=== PATIENT | female | born 1960 | race Caucasian/White ===

== ENCOUNTER 2016-08-14 20:01 | Emergency (ER) | payer OTHER, MEDICARE ==
[~2016-08-14] VITALS: Ht 162.6 cm; Wt 50.0 kg
[~2016-08-14 20:01] MED LIST: ALBU8.5H2 INHALATION; BUPR150T8 PO; CHOL5000 PO; COLL PO; FEXO180T85 PO; FLUT100D2 IH; FLUT9.9S NS; LISI-567 PO; MONT10TA20 PO; MORP30TA PO; OXYC-474 PO
[2016-08-14 20:09] VITALS: BP 123/83; PULSE 86; RESP 18; O2SAT 98
[2016-08-14 21:34] LABS: BASOPHILS % (AUTO) 0.2 % (0-3); EOSINOPHILS % (AUTO) 0 % (0-5); MONOCYTES % (AUTO) 5.1 % (4-12); Mean Corpuscular Volume 93.2 fL (81-100); NEUTROPHILS % (AUTO) 82.3 % (40-74); Platelet Count 226 bil/L (150-400)
[2016-08-14 22:01] LABS: Magnesium 1.9 mg/dL (1.6-2.6)
[2016-08-14] MEDS ORDERED: 0.9% Sodium Chloride 1,000 ML IV ONE (23:00)
--- NOTE | 2016-08-14 23:10 | ED.REPORT ---
HPI-NVD Date of Service Aug 14, 2016 ED Provider: Axel Tai DO A 55 year old female with a history of COPD and hypertension presents to the ED with diffuse abdominal pain onset two days ago, after eating a [employer] hamburger. Associated symptoms include nausea, vomiting, watery diarrhea, fever (38.1), and generalized myalgias. The patient has not been able to drink adequate fluids. She denies hematemesis, hematochezia, or other symptoms. The patient is on 2L O2 at home. Nursing Notes Stated Complaint: VOMITING, DIARRHEA, BODY ACHES Chief Complaint: Female Abdominal Pain Nursing Notes Reviewed: Yes Allergies: Uncoded Allergies: NKDA (Allergy, Unknown, 10/13/04) Scheduled Albuterol HFA (Proair HFA) 8.5 Gm Hfa.aer.ad 2 PUFFS INHALATION TID Bupropion ER (Wellbutrin SR) 150 Mg Tablet.er 150 MG PO BID Fexofenadine (Glendy Allergy) 180 Mg Tablet 180 MG PO DAILY Fluticasone Propionate (Flonase Allergy Relief) 50 Mcg/Actuation Empire.susp 9.9 ML NS BID Fluticasone Propionate (Flovent Diskus) 100 Mcg Disk.w.dev 1 PUFF IH BID Lisinopril (Lisinopril) 20 Mg Tablet 20 MG PO DAILY Montelukast (Singulair) 10 Mg Tablet 10 MG PO HS Morphine Sulfate (Morphine Sulfate) 30 Mg Tablet 30 MG PO TID Peg/Electrolytes (Golytely Solution) 4,000 Ml Soln 4,000 ML PO ONCE 1 glassful every 10-15 min until clear liquid BMs Scheduled PRN Oxycodone (Roxicodone) 5 Mg Tablet 5 MG PO Q4H PRN PRN For Pain Miscellaneous Medications Cholecalciferol (Vitamin D3) (Vitamin D3) 5,000 Unit Capsule 5,000 UNIT PO General Time Seen by MD: 22:56 Chief Complaint Other (Diffuse Abdominal Pain) Hx Obtained From: Patient Arrived By: Walk-in Onset Occurred: 2 days ago Context of Onset: Possible food poisoning Symptom Duration: Since onset Diarrhea: Diarrhea is watery Location: : Diffuse (Abdominal) Quality: Painful Severity: Current: Moderate Severity: Maximum: Moderate Associated with: Reports: Fever, Denies: Blood in stool, Hematemesis Pertinent Negative: Relieved by nothing Recent Healthcare: No recent doctor visit Past Medical History Past Medical History Reports: COPD, Hypertension Past Surgical History Pain blocks every 3-4 weeks for diffuse abdominal pains Smoking History Unknown if Ever Smoker Social History Other Social History: Good social support Ambulatory Status Independent Review of Systems Review of Systems Note: + Decreased fluid intake Constitutional: Reports: Fever (38.1 in ED) GI: Reports: Abdominal pain (Diffuse), Diarrhea, Nausea, Vomiting, Denies: Hematemesis, Hematochezia Complete sys rev & neg: except as marked. Respiratory: Denies: Non-productive cough, Shortness of breath Musculoskeletal: Reports: Myalgia (Generalized) Physical Exam Initial Vital Signs Vital Signs (First) Date Time Temp Pulse Resp B/P Pulse Ox O2 Delivery O2 Flow Rate FiO2 08/14/16 20:09 38.1 86 18 123/83 98 Room Air Initial VS: Reviewed Head / Eyes: Atraumatic, Normocephalic ENT: Conjunctiva normal, No scleral icterus Neck: Supple, Full range of motion Respiratory: Breath sounds normal, Clear to auscultation, No respiratory distress Cardiovascular: Regular rate & rhythm, Heart sounds normal Skin: Warm, Dry, No cyanosis Neurologic: Alert, Oriented, Nonfocal Psychiatric: Mood/affect normal, Behavior normal, Normal thought content General/Constitutional: Awake, Alert Abdomen: Atraumatic, Soft Tenderness/Guarding/Rebound: Positive: Tender diffuse Interpretation & Diagnostics Lab Results Interpretation Result Diagram: 08/14/16212308/14/162123 Test 08/14/16 21:24 White Blood Count 9.0th/mm3 (3.8-10.1) Red Blood Count 4.53mil/mm3 (3.90-5.20) Hemoglobin 13.6g/dL (12.0-15.6) Hematocrit 42.2% (35.0-46.0) Mean Corpuscular Volume 93.2fL (81-100) Mean Corpuscular Hemoglobin 30.0pg (27.0-35.0) Mean Corpuscular Hemoglobin Concent 32.2% (32.0-37.0) Red Cell Distribution Width 14.7% (12.3-15.4) Platelet Count 226bil/L (150-400) Neutrophils (%) (Auto) 82.3% (40-74) Lymphocytes (%) (Auto) 12.0% (14-46) Monocytes (%) (Auto) 5.1% (4-12) Eosinophils (%) (Auto) 0% (0-5) Basophils (%) (Auto) 0.2% (0-3) Sodium Level 136mEq/L (134-144) Potassium Level 4.4mEq/L (3.5-5.2) Chloride Level 98mEq/L (97-108) Carbon Dioxide Level 23mmol/L (18-29) Blood Urea Nitrogen 18mg/dL (6-24) Creatinine 0.63mg/dL (0.57-1.00) Estimat Glomerular Filtration Rate 141mL/min (>59) Glucose Level 124mg/dL (60-99) Calcium Level 9.9mg/dL (8.5-10.1) Magnesium Level 1.9mg/dL (1.6-2.6) Total Bilirubin 0.5mg/dL (0.0-1.2) Aspartate Amino Transf (AST/SGOT) 18U/L (0-50) Alanine Aminotransferase (ALT/SGPT) 8U/L (0-32) Alkaline Phosphatase 52U/L (25-150) Total Protein 7.3g/dL (6.4-8.4) Albumin 4.9g/dL (3.4-5.0) Lipase 27U/L (13-60) Hold Villanueva Top Tube Received (Received) Re-Eval/Medical Decision Source of Hx: Old records Re-Evaluation/Progress : Time of Eval: 02:00 Patient Status: Condition improved Re-Evaluation/Progress Note: Discussed with patient lab results and plan for CT scan. Patient declines the scan and would prefer to be sent home with pain medication. Discussed diagnosis and plan for discharge. Follow-up and return to the ER instructions given. Patient agrees with plan for care and all questions were addressed. Counseled Regarding: Diagnosis, Lab results, Need for follow-up, When/why to return to ED Discharge & Departure Shift Change Sign-Out Response to Therapy: Improved Impression: Primary Impression: Nausea vomiting and diarrhea Disposition: Home Discharge Condition All VS Reviewed: Yes Condition: Improved Patient Instructions: Acute Abdominal Pain (ED), Gastroenteritis (ED) Additional Instructions: Clear liquid diet for tonight. Recheck in 10-12 hours. Be seen by your primary care or come back to the emergency department. As we discussed a CT scan is necessary to evaluate and rule out appendicitis as well as other abdominal surgical conditions. If the pain localizes as discussed come back to the emergency department right away. Take one [place] every 6 hours as needed for the crampy abdominal pain. Take 1 Zofran every 8 hours as needed for nausea. Do not take either of these with any other sedatives. Do not drive or operate machinery consume alcohol while taking the [place]. Close follow-up is essential. Read the aftercare instructions given. Referrals: Katlyn Patricia (PCP) [facility] Attestation Portions of this note were transcribed by Rita Hill. I, Dr. Tai, personally performed the history, physical exam, and medical decision-making; I reviewed and confirmed the accuracy of the information in the transcribed note. Signed by: Mariana Brady, 08/15/2016, 02:15 copies to: Katlyn Patricia Todd P DO Aug 14, 2016 23:10 RITA HILL Aug 14, 2016 23:17
[2016-08-14] MEDS: HYDROmorphone 0.5 mg/0.5 mL iSecure Syringe IVPUSH PRN (23:13)
[2016-08-14] MEDS: Ondansetron 2 mg/mL 2 mL Inj IVPUSH PRN (23:13)
[2016-08-15] MEDS: HYDROmorphone 0.5 mg/0.5 mL iSecure Syringe IVPUSH PRN (00:40)
[2016-08-15] MEDS: Ondansetron 2 mg/mL 2 mL Inj IVPUSH PRN (00:40)
[2016-08-15] MEDS ORDERED: 0.9% Sodium Chloride 1,000 ML IV ONE (01:25)
[2016-08-15] MEDS ORDERED: _HYDROcodone/APAP 5-325 mg Tablet PO PRN (02:05)
[2016-08-15] MEDS ORDERED: _Ondansetron ODT 4 mg Tablet PO PRN (02:05)
[2016-08-15 02:45] VITALS: BP 97/62; PULSE 75; RESP 16; O2SAT 97
== END 2016-08-15 02:46 | disposition home or self-care (01) ==
LOC: SED 20:01
DX: R11.2 Nausea with vomiting, unspecified (principal); R19.7 Diarrhea, unspecified; I10 Essential (primary) hypertension; J44.9 Chronic obstructive pulmonary disease, unspecified; Z79.51 Long term (current) use of inhaled steroids
CPT/HCPCS: 36415; 80053; 83690; 83735; 85025; 96361; 96374; 96375; 96376; 99284; J1170; J2405; J7030